=== PATIENT | female | born 1995 | race Caucasian/White ===

== ENCOUNTER 2016-11-07 19:35 | Emergency (ER) | payer MEDICAID ==
[2016-11-07] MEDS ORDERED: MUPIROCIN 2% OINTMENT 22 GM TP ONE (23:19)
[2016-11-07] MEDS ORDERED: SULFAMETHOXAZOLE/TRIMETHOPRIM 800-160 MG TABLET PO ONE (23:19)
[2016-11-07] MEDS ORDERED: HYDROCODONE/ACETAMINOPHEN 5-325 MG TABLET PO ONE (23:19)
--- NOTE | 2016-11-07 23:24 | ER Document Report ---
ED Skin Rash/Insect Bite/Abscs - General Chief Complaint: Insect Bite Stated Complaint: LEFT ARM LEAKING FLUID Mode of Arrival: Ambulatory Information source: Patient Notes: Patient is a 21-year-old female who presents to the ER today for left arm abscess that she says she woke up with 2 days ago that has worsened in pain , redness and today she woke up with a white pus pocket over the top which burst and it has been leaking pus ever since. She denies any fevers or chills that she knows of, history of MRSA. She denies any insect bite that she saw or IV drug use. TRAVEL OUTSIDE OF THE [place] IN LAST 30 DAYS: No - Related Data Allergies/Adverse Reactions: No Known Allergies Allergy (Verified 03/29/16 18:37) Past Medical History - General Information source: Patient - Social History Smoking Status: Unknown if Ever Smoked Family History: Reviewed & Not Pertinent Endocrine Medical History: Reports: Hx Hypothyroidism Psychiatric Medical History: Reports: Hx Depression Past Surgical History: Reports: Hx Section - Immunizations Hx Diphtheria, Pertussis, Tetanus Vaccination: Yes Review of Systems - Review of Systems Constitutional: No symptoms reported EENT: No symptoms reported Cardiovascular: No symptoms reported Respiratory: No symptoms reported Gastrointestinal: No symptoms reported Genitourinary: No symptoms reported Female Genitourinary: No symptoms reported Musculoskeletal: No symptoms reported Skin: See HPI Hematologic/Lymphatic: No symptoms reported Neurological/Psychological: No symptoms reported Physical Exam - Vital signs Vitals: Temp Pulse Resp BP Pulse Ox 98.3 F 102 H 16 111/90 H 100 11/07/16 20:39 11/07/16 20:39 11/07/16 20:39 11/07/16 20:39 11/07/16 20:39 - Notes Notes: PHYSICAL EXAMINATION: GENERAL: Anxious, but in no acute distress. HEAD: Atraumatic, normocephalic. EYES: Pupils equal round and reactive to light, extraocular movements intact, sclera anicteric, conjunctiva are normal. NECK: Normal range of motion, supple without lymphadenopathy LUNGS: CTAB and equal. No wheezes rales or rhonchi. HEART: Regular rate and rhythm without murmurs EXTREMITIES: Normal range of motion, no pitting edema. No cyanosis. NEUROLOGICAL: Cranial nerves grossly intact. Normal sensory/motor exams. PSYCH: Normal mood, normal affect. SKIN: Warm, Dry, normal turgor, 4 cm of erythema to left proximal, lateral forearm, tender to palpation, 1 cm in diameter hole in the center leaking brown purulent discharge, tender to palpation, slightly indurated under, no fluctuance , no bleeding Course - Re-evaluation Re-evalutation: 11/07/16 23:22 Abscess is already open and draining very well. Patient will be placed on Bactrim and given something for pain. Culture was obtained and pending. - Vital Signs Vital signs: Temp Pulse Resp BP Pulse Ox 98.3 F 102 H 16 111/90 H 100 11/07/16 20:39 11/07/16 20:39 11/07/16 20:39 11/07/16 20:39 11/07/16 20:39 Discharge - Discharge Clinical Impression: Abscess of left arm Condition: Stable Disposition: HOME, SELF-CARE Instructions: Abscess ([facility]), Oral Narcotic Medication ([facility]), Trimethoprim- Sulfa ([facility]) Additional Instructions: Return immediately for any new or worsening symptoms. Follow up with primary care provider, call tomorrow to make followup appointment. Prescriptions: Hydrocodone/Acetaminophen [[place] 5-325 mg Tablet] 1 tab PO Q4 PRN #15 tablet PRN Reason: Sulfamethoxazole/Trimethoprim [Bactrim Ds Tablet] 1 each PO BID #20 tablet
[2016-11-08 01:02] VITALS: BP 109/89
== END 2016-11-08 00:08 | disposition home or self-care (01) ==
LOC: ER 19:35
DX: S40.862A Insect bite (nonvenomous) of left upper arm, initial encounter (principal); L02.414 Cutaneous abscess of left upper limb; W57.XXXA Bitten or stung by nonvenomous insect and other nonvenomous arthropods, initial encounter
CPT/HCPCS: 99281; 87070; 87205; 87075; 87077; J3490 ×2

== ENCOUNTER 2017-03-31 11:44 | Emergency (ER) | payer MEDICAID ==
--- NOTE | 2017-03-31 12:07 | ER Document Report ---
ED Medical Screen (RME) - General Chief Complaint: Abdominal Pain Stated Complaint: ABDOMINAL CRAMPING Time Seen by Provider: 03/31/17 12:01 Notes: 21-year-old female patient with LMP 02/21/2017, positive home test, 3 days of severe pelvic cramping. No bleeding. Patient is blood type a positive She is A0. I have greeted and performed a rapid initial assessment of this patient. A comprehensive ED assessment and evaluation of the patient, analysis of test results and completion of the medical decision making process will be conducted by additional ED providers. TRAVEL OUTSIDE OF THE [place] IN LAST 30 DAYS: No - Related Data Allergies/Adverse Reactions: No Known Allergies Allergy (Verified 03/31/17 12:01) Past Medical History - Social History Chew tobacco use (# tins/day): No Frequency of alcohol use: None Drug Abuse: None Endocrine Medical History: Reports: Hx Hypothyroidism Renal/ Medical History: Denies: Hx Peritoneal Dialysis Psychiatric Medical History: Reports: Hx Depression Past Surgical History: Reports: Hx Section - Immunizations Hx Diphtheria, Pertussis, Tetanus Vaccination: Yes Physical Exam - Vital signs Vitals: Temp Pulse Resp BP Pulse Ox 98.5 F 106 H 14 119/69 100 03/31/17 11:47 03/31/17 11:47 03/31/17 11:47 03/31/17 11:47 03/31/17 11:47 Course - Vital Signs Vital signs: Temp Pulse Resp BP Pulse Ox 98.5 F 106 H 16 119/69 100 03/31/17 11:47 03/31/17 11:47 03/31/17 12:01 03/31/17 11:47 03/31/17 11:47
[2017-03-31 12:41] LABS: ABSOLUTE BASOPHILS # (AUTO) 0.1 10^3/uL (0.0-0.2); ABSOLUTE LYMPHOCYTES (AUTO) 2.2 10^3/uL (0.5-4.7); ABSOLUTE MONOCYTES (AUTO) 0.5 10^3/uL (0.1-1.4); ABSOLUTE NEUT (AUTO) 6.2 10^3/uL (1.7-8.2); BASOPHILS % (AUTO) 0.6 % (0-2); EOSINOPHILS % (AUTO) 0.2 % (0-6); HEMATOCRIT 39.2 % (36.0-47.0); HEMOGLOBIN 13.4 g/dL (12.0-15.5); LYMPHOCYTES % (AUTO) 24.1 % (13-45); MEAN CORPUSCULAR HEMOGLOBIN 31.2 pg (27.0-33.4); MEAN CORPUSCULAR HGB CONC 34.1 g/dL (32.0-36.0); MEAN CORPUSCULAR VOLUME 91 fl (80-97); MONOCYTES % (AUTO) 6.1 % (3-13); RED BLOOD COUNT 4.29 10^6/uL (3.72-5.28); RED CELL DISTRIBUTION WIDTH 13.6 % (11.5-14.0)
--- NOTE | 2017-03-31 12:57 | RADIOLOGY REPORT (SQ) ---
EXAM DESCRIPTION: U/S OB TRANSVAGINAL W/O DOP COMPLETED DATE/TIME: 03/31/2017 12:42 pm REASON FOR STUDY: 5.5 wks, severe cramps, + home HCG COMPARISON: None. TECHNIQUE: Transvaginal static and realtime grayscale images acquired of the pelvis. Additional melissa cted spectral and color Doppler images recorded. All images stored on PACs. bHCG: Pending. LIMITATIONS: None. FINDINGS: FETUS: Living intrauterine . EGA: 6 week. ELI: 11/24/2017. FHR: 118 beats per minute. SUBCHORIONIC BLEED: No. SIZE OF BLEED: Not applicable. UTERUS: No masses. No anomalies. CERVICAL LENGTH: 3.1 cm. Closed. RIGHT ADNEXA: Normal ovary with normal vascular flow. No adnexal free fluid. No adnexal masses. LEFT ADNEXA: Ovary not identified. No adnexal free fluid. No adnexal masses. FREE FLUID: None. OTHER: No other significant finding. IMPRESSION: LIVING INTRAUTERINE . EGA 6 WEEK. Trimester of : First - 0 to 13 weeks. TECHNICAL DOCUMENTATION: JOB ID: [id number] [employer]- All Rights Reserved
[2017-03-31] MEDS ORDERED: METOCLOPRAMIDE HCL 10 MG TABLET PO ONE (14:30)
--- NOTE | 2017-03-31 15:17 | ER Document Report ---
ED General - General Chief Complaint: Abdominal Pain Stated Complaint: ABDOMINAL CRAMPING Time Seen by Provider: 03/31/17 12:01 TRAVEL OUTSIDE OF THE [place] IN LAST 30 DAYS: No - HPI Notes: Patient is coming in for abdominal pain nausea vomiting. Patient is a . Patient states previous was complicated with labor at 7 months at a time patient was smoking. Patient states she does continue to smoke however does complain on quitting. Patient also complains of insomnia states that since she is when she has been she has had difficulty sleeping. Patient denies any other past medical history. - Related Data Allergies/Adverse Reactions: No Known Allergies Allergy (Verified 03/31/17 12:01) Past Medical History - Social History Smoking Status: Current Every Day Smoker Chew tobacco use (# tins/day): No Frequency of alcohol use: None Drug Abuse: None Family History: Reviewed & Not Pertinent Patient has suicidal ideation: No Patient has homicidal ideation: No Endocrine Medical History: Reports: Hx Hypothyroidism Renal/ Medical History: Denies: Hx Peritoneal Dialysis Psychiatric Medical History: Reports: Hx Depression Past Surgical History: Reports: Hx Section - Immunizations Hx Diphtheria, Pertussis, Tetanus Vaccination: Yes Review of Systems - Review of Systems Constitutional: No symptoms reported EENT: No symptoms reported Cardiovascular: No symptoms reported Respiratory: No symptoms reported Gastrointestinal: Abdominal pain Genitourinary: No symptoms reported Female Genitourinary: No symptoms reported Musculoskeletal: No symptoms reported Skin: No symptoms reported Hematologic/Lymphatic: No symptoms reported Neurological/Psychological: No symptoms reported -: Yes All other systems reviewed and negative Physical Exam - Vital signs Vitals: Temp Pulse Resp BP Pulse Ox 98.5 F 106 H 14 119/69 100 03/31/17 11:47 03/31/17 11:47 03/31/17 11:47 03/31/17 11:47 03/31/17 11:47 Interpretation: Normal - General General appearance: Appears well, Alert - HEENT Head: Normocephalic, Atraumatic Eyes: Normal Pupils: PERRL Neck: Other - Diffuse cervical lymphadenopathy in anterior chains underneath the angle of the mandible of the wall of the right side. - Respiratory Respiratory status: No respiratory distress Chest status: Nontender Breath sounds: Normal Chest palpation: Normal - Cardiovascular Rhythm: Irregularly irregular, Tachycardia Heart sounds: Normal auscultation Murmur: No - Abdominal Inspection: Normal Distension: No distension Bowel sounds: Normal Tenderness: Nontender Organomegaly: No organomegaly - Back Back: Normal, Nontender - Extremities General upper extremity: Normal inspection, Nontender, Edema - Right upper extremity edema, Normal color, Normal ROM, Normal temperature General lower extremity: Normal inspection, Nontender, Normal color, Normal ROM , Normal temperature, Normal weight bearing. No: Jonathan's sign - Neurological Neuro grossly intact: Yes Cognition: Normal Orientation: AAOx4 Felicit[place] Coma Scale Eye Opening: Spontaneous [place] Coma Scale Verbal: Oriented [place] Coma Scale Motor: Obeys Commands Felicit[place] Coma Scale Total: 15 Speech: Normal Motor strength normal: LUE, RUE, LLE, RLE Sensory: Normal - Psychological Associated symptoms: Normal affect, Normal mood - Skin Skin Temperature: Warm Skin Moisture: Dry Skin Color: Normal Course - Re-evaluation Re-evalutation: Educated patient about uiga-vwp-rnilgmn medications for her nausea vomiting. Patient's ultrasound does show an IUP approximately 6 weeks. No signs of ectopic . More likely patient experiencing round ligament pain. Patient encouraged to drink plenty of water take Tylenol for pain. Patient was encouraged follow-up with [facility] take vitamins. Patient was given a prescription for Unisom and Reglan. Patient was also given instructions on the over the counter medications for nausea. Patient discharged home 03/31/17 15:46 - Vital Signs Vital signs: Temp Pulse Resp BP Pulse Ox 98.5 F 106 H 16 119/69 100 03/31/17 11:47 03/31/17 11:47 03/31/17 12:01 03/31/17 11:47 03/31/17 11:47 - Laboratory Result Diagrams: 03/31/17 12:14 Laboratory results interpreted by me: 03/31/17 12:14 Beta HCG, Quant 19602.00 H Discharge - Discharge Clinical Impression: Abdominal pain affecting , Nausea/vomiting in Condition: Good Disposition: HOME, SELF-CARE Instructions: Pelvic Pain in ([facility]), ([facility]) Additional Instructions: Your ultrasound today shows a approximately 6 weeks. It is important that she continue to drink plenty water to stay hydrated. This will also aid in your stomach pain. At this time you please make sure to take the vitamins as prescribed. May only take Tylenol for your pain control. Return to the ER if symptoms worsen. 218 your insomnia and nausea you may take Unisom. Also for nausea you may take the Reglan prescribed. You do not need to get both prescriptions filled. Please make sure that you are taking the vitamins as prescribed. You have been seen for vomiting during .~ You should continue to drink plenty of water and consider taking a solution such as Pedialyte if your having difficulty eating food.~ Please return if you become unable to drink any fluids for more than 12 hours, urinate less than twice a day, pass out, or have any other symptoms that are concerning to you. ~ For nausea and vomiting during I recomment: Start with 10-12.5 mg of pyridoxine (vitamin B6) three times a day for 2 days. If not fully effective, Increase to 12.5 mg of pyridoxine four times a day for 2 days. If not fully effective, Increase to 25 mg of pyridoxine three times a day for 2 days. If not fully effective, Continue 25 mg pyridoxine 3 times a day, and add 12.5 mg of doxylamine before bedtime each day for 2 days. If not fully effective, Continue 25 mg pyridoxine 3 times a day, and take 12.5 mg of doxylamine twice a day. If not fully effective, Continue 25 mg pyridoxine 3 times a day, and take 12.5 mg of doxylamine three times a day. If not fully effective, Continue 25 mg pyridoxine 3 times a day, and 12.5 mg of doxylamine 3 times a day , while adding Emetrol, one to two tablespoons (15-30 cc) taken once or twice a day as needed. (Emetrol is an kwur-wdz-josgoiy mixture of sugar syrups and phosphoric acid [phosphorylated carbohydrate solution]) that acts by soothing the actual wall of the gastrointestinal tract). If not fully effective, Consult with your doctor. Prescriptions: Doxylamine Succinate [Unisom] 12.5 - 25 mg PO QHS #30 tablet Metoclopramide HCl [Reglan] 5 mg PO Q6 #20 tablet Vit #76/Iron,Carb/FA [Prenatabs Rx Tablet] 1 each PO DAILY #30 tablet Forms: Return to Work
[2017-03-31 15:34] VITALS: BP 126/96
== END 2017-03-31 15:20 | disposition home or self-care (01) ==
LOC: ER 11:44
DX: O26.891 Other specified pregnancy related conditions, first trimester (principal); R10.9 Unspecified abdominal pain; R00.0 Tachycardia, unspecified; R59.0 Localized enlarged lymph nodes; O21.9 Vomiting of pregnancy, unspecified; O99.351 Diseases of the nervous system complicating pregnancy, first trimester; G47.00 Insomnia, unspecified; O99.331 Smoking (tobacco) complicating pregnancy, first trimester; O99.411 Diseases of the circulatory system complicating pregnancy, first trimester; I49.9 Cardiac arrhythmia, unspecified; O09.211 Supervision of pregnancy with history of pre-term labor, first trimester; Z3A.01 Less than 8 weeks gestation of pregnancy
CPT/HCPCS: 99284; 36415; 84702; 85025; 76817; J3490

== ENCOUNTER 2017-10-23 11:27 | Outpatient (CLI) | payer MEDICAID ==
--- NOTE | 2017-10-23 12:21 | Non Stress Test Report ---
Non Stress Test Datetime Report Generated by CPN: 10/23/2017 12:21 DEMOGRAPHIC EGA NST: 36.2 INDICATION Indication for Study: Ordered by Provider MONITORING Monitor Explained: Monitor Explained; Test Explained; Patient Verbalized Understanding Time on Monitor: 10/23/2017 11:45 Time off Monitor: 10/23/2017 12:17 NST Duration: 32 NST INTERVENTIONS NST Interventions: PO Hydration; Reposition Patient Physician Notified NST: A Emmel CNM BABY A: [id number] BABY A Movement : Present Contraction Frequency : rare FHR Baseline : 125 Accelerations : 15X15 Decelerations : None Variability : Moderate 6-25bpm NST Review: Meets Criteria for Reactive NST NST Review and Verified By : Anny Richards RNC NST Results: Reactive NST REPORT Report Trigger: Send Report
== END 2017-10-23 12:20 | disposition home or self-care (01) ==
LOC: LC 11:27
PROVIDERS: ATTEND Obstetrics & Gynecology Gynecology
PROC: 4A1HXCZ Monitoring of Products of Conception, Cardiac Rate, External Approach (ICD-10-PCS; principal; 2017-10-23)
DX: Z34.93 Encounter for supervision of normal pregnancy, unspecified, third trimester (principal); Z36.89 Encounter for other specified antenatal screening; Z3A.36 36 weeks gestation of pregnancy
CPT/HCPCS: 59025

== ENCOUNTER 2017-11-11 10:41 | Outpatient (CLI) | payer MEDICAID ==
[2017-11-11 11:50] LABS: APPEARANCE,URINE CLOUDY; BILIRUBIN,URINE NEGATIVE (NEGATIVE); COLOR,URINE YELLOW; GLUCOSE, URINE NEGATIVE (NEGATIVE); KETONES,URINE NEGATIVE (NEGATIVE); LEUKOCYTE ESTERASE,URINE TRACE (NEGATIVE); NITRITE,URINE NEGATIVE (NEGATIVE); PROTEIN,URINE NEGATIVE (NEGATIVE); URINE SPECIFIC GRAVITY 1.014; UROBILINOGEN,URINE NEGATIVE mg/dL (<2.0)
[2017-11-11 12:19] LABS: URINE AMPHETAMINES SCREEN NEGATIVE; URINE BARBITURATES SCREEN NEGATIVE; URINE BENZODIAZEPINES SCREEN NEGATIVE; URINE COCAINE SCREEN NEGATIVE; URINE MARIJUANA (THC) SCREEN NEGATIVE; URINE METHADONE SCREEN NEGATIVE; URINE PHENCYCLIDINE SCREEN NEGATIVE
--- NOTE | 2017-11-11 12:48 | L&D Progress Notes ---
PROGRESS NOTES Datetime Report Generated by CPN: 11/11/2017 12:48 PROGRESS NOTE Comment: 22 yo presents with complaints of uterine contractions repeat c/s scheduled for next week EDC smoker poor dentition d/c home with instructions keep regularly scheduled appt VAGINAL EXAM Dilatation: 1 Effacement: 25 Station: -3 FETUS A Monitoring: External US SIGNATURE SIGNATURE: [id number];[id number] SIGNATURE: [id number] Assignment: Alexei Garza MD Signature: with User ID: [email or web address] : with User ID: [email or web address]
== END 2017-11-11 13:00 | disposition home or self-care (01) ==
LOC: LC 10:41
PROVIDERS: ATTEND Obstetrics & Gynecology Gynecology
PROC: 4A1HXCZ Monitoring of Products of Conception, Cardiac Rate, External Approach (ICD-10-PCS; principal; 2017-11-11)
DX: O47.1 False labor at or after 37 completed weeks of gestation (principal); O99.333 Smoking (tobacco) complicating pregnancy, third trimester; O34.219 Maternal care for unspecified type scar from previous cesarean delivery; Z3A.39 39 weeks gestation of pregnancy
CPT/HCPCS: 80307; 81005

== ENCOUNTER 2017-11-18 05:17 | Inpatient (IN) | payer MEDICAID ==
[2017-11-15 12:03] LABS: APPEARANCE,URINE CLOUDY; BILIRUBIN,URINE NEGATIVE (NEGATIVE); COLOR,URINE YELLOW; GLUCOSE, URINE NEGATIVE (NEGATIVE); KETONES,URINE NEGATIVE (NEGATIVE); LEUKOCYTE ESTERASE,URINE MODERATE (NEGATIVE); NITRITE,URINE NEGATIVE (NEGATIVE); PROTEIN,URINE NEGATIVE (NEGATIVE); URINE SPECIFIC GRAVITY 1.012
[2017-11-15 12:05] LABS: ABSOLUTE BASOPHILS # (AUTO) 0.1 10^3/uL (0.0-0.2); ABSOLUTE EOSINOPHILS # (AUTO) 0.1 10^3/uL (0.0-0.6); ABSOLUTE LYMPHOCYTES (AUTO) 3.1 10^3/uL (0.5-4.7); ABSOLUTE MONOCYTES (AUTO) 0.9 10^3/uL (0.1-1.4); ABSOLUTE NEUT (AUTO) 10.3 10^3/uL (1.7-8.2); BASOPHILS % (AUTO) 0.8 % (0-2); EOSINOPHILS % (AUTO) 0.5 % (0-6); HEMATOCRIT 38.2 % (36.0-47.0); HEMOGLOBIN 12.9 g/dL (12.0-15.5); LYMPHOCYTES % (AUTO) 21.6 % (13-45); MEAN CORPUSCULAR HGB CONC 33.8 g/dL (32.0-36.0); MEAN CORPUSCULAR VOLUME 89 fl (80-97); MONOCYTES % (AUTO) 5.9 % (3-13); PLATELET COUNT 322 10^3/uL (150-450); RED CELL DISTRIBUTION WIDTH 13.2 % (11.5-14.0); SEGMENTED NEUTROPHILS % (AUTO) 71.2 % (42-78); TOTAL CELLS COUNTED % (AUTO) 100 %; WHITE BLOOD COUNT 14.5 10^3/uL (4.0-10.5)
[2017-11-15 12:17] LABS: URINE AMPHETAMINES SCREEN NEGATIVE; URINE BARBITURATES SCREEN NEGATIVE; URINE BENZODIAZEPINES SCREEN NEGATIVE; URINE COCAINE SCREEN NEGATIVE; URINE MARIJUANA (THC) SCREEN NEGATIVE; URINE METHADONE SCREEN NEGATIVE; URINE PHENCYCLIDINE SCREEN NEGATIVE
[2017-11-18] MEDS ORDERED: CEFAZOLIN 1 GM/D5W RTU 1 GM/50 ML RTUPB IV ONE (06:03)
[2017-11-18] MEDS ORDERED: OXYTOCIN 10 UNIT/ML VIAL ONE (07:36)
[2017-11-18] MEDS ORDERED: MIDAZOLAM 2 MG/2 ML INJ ONE (07:37)
[2017-11-18] MEDS ORDERED: FENTANYL CITRATE INJ/PF 100 MCG/2 ML AMPUL ONE (07:37)
[2017-11-18] MEDS ORDERED: PROPOFOL INJ 200 MG/20 ML VIAL IV ONE (07:37)
[2017-11-18] MEDS ORDERED: EPHEDRINE SULFATE INJ 50 MG/1 ML AMPULE ONE (07:37)
[2017-11-18] MEDS ORDERED: KETAMINE HCL INJ 500 MG/10 ML VIAL ONE (08:11)
[2017-11-18] MEDS ORDERED: RINGERS SOLUTION,LACTATED 1,000 ML IV SCH (08:30)
[2017-11-18] MEDS ORDERED: PROMETHAZINE HCL INJ 25 MG/1 ML VIAL IM PRN (08:30)
[2017-11-18] MEDS ORDERED: DIPH/PERTUSS(ACELL)/TETANUS VAC/PF 0.5 ML SYR (>=10YO) IM PRN (08:30)
[2017-11-18] MEDS ORDERED: MEASLES,MUMPS&RUBELLA VACC/PF 0.5 ML VIAL SUBCUT PRN (08:30)
[2017-11-18] MEDS ORDERED: ACETAMINOPHEN 325 MG TABLET PO PRN (08:30)
[2017-11-18] MEDS ORDERED: RINGERS SOLUTION,LACTATED 200 ML IV PRN (08:35)
[2017-11-18] MEDS ORDERED: DIPHENHYDRAMINE HCL 50 MG/ML VIAL IV PRN (08:36)
[2017-11-18] MEDS ORDERED: PROMETHAZINE HCL INJ 25 MG/1 ML VIAL IV PRN (08:36)
[2017-11-18] MEDS ORDERED: ONDANSETRON HCL INJ/PF 4 MG/2 ML SDV IV PRN (08:36)
--- NOTE | 2017-11-18 09:04 | OPERATIVE REPORT E ---
Operative Report NAME: HEATHER KAISER : 1995 AGE: 22Y DATE OF SURGERY: 11/18/2017 ROOM: 227 PREOPERATIVE DIAGNOSES: 1. Intrauterine at 39 weeks and 1 day. 2. Previous . POSTOPERATIVE DIAGNOSES: 1. Intrauterine at 39 weeks and 1 day. 2. Previous . OPERATION: Repeat low transverse hysterotomy section. SURGEON: JAYRO BATRES M.D. ANESTHESIA: Dr. Quarles with spinal. FINDINGS: A male infant in cephalic presentation with Apgars of 8 and 9. Weight 5 pounds 15 ounces. COMPLICATIONS: None. ESTIMATED BLOOD LOSS: 600 mL. SPECIMENS REMOVED: None. PROCEDURE IN DETAIL: Patient was taken to the operating room, prepared and draped in normal sterile fashion in the supine position with a leftward tilt. A transverse skin incision was made with the scalpel and carried through to the underlying layer of fascia with the same scalpel. The fascia was excised in the midline and extended laterally with Jaylen. The fascia was then dissected from the rectus muscle sharply with Jaylen and the rectus muscle was divided and the peritoneal cavity was entered bluntly with good visualization of the bladder and the uterus. The bladder blade was inserted and the hysterotomy was nicked in the center and extended with surgeon finger fracture. The infant was then delivered atraumatically. Then nose and mouth were suctioned with a suction bulb. The cord was clamped and cut, and the infant was handed off to waiting gunstock spray unit adjuster. The cord blood was collected and placenta was removed manually. The uterus was exteriorized and cleared of clots and debris. The hysterotomy was closed with 0 Monocryl in a running locked fashion. A second layer was used in an imbricating fashion to ensure hemostasis. The uterus was returned to the abdomen, and the peritoneal cavity was cleared of clots and debris. The rectus muscle and peritoneum were reapproximated with a mattress suture of 2-0 chromic. The fascia was closed with 0 Vicryl. The subcutaneous layer was closed with plain catgut and the skin was closed with 4-0 Vicryl. Patient tolerated procedure well. Sponge, lap and needle counts were correct x2. Patient was taken to recovery in stable condition. DICTATING PHYSICIAN: JAYRO BATRES M.D. [id number] PHY#: [id number] ID: [id number] [facility]#: [id number] ACCT: [id number] cc:JAYRO BATRES M.D. >
[2017-11-18] MEDS ORDERED: ACETAMINOPHEN 100 ML IV ONE (09:07)
--- NOTE | 2017-11-18 09:18 | Warning Signs in Babies ---
VOD Warning Signs Datetime Report Generated by [facility]: 11/18/2017 09:17 VOD#608 -Warning Signs in Babies: Needs to be viewed. (11/18/2017 08:49:Pricila Brito RN)
[2017-11-18] MEDS: OXYTOCIN/NORMAL SALINE 20 UNIT/1,000 ML RTUINJ INJ PRN ×2 (09:22→09:45)
[2017-11-18] MEDS: PRENATAL VITAMIN W DHA CAPSULE PO SCH (09:35)
[2017-11-18] MEDS: BUPRENORPHINE HCL 2 MG SUBLINGUAL TABLET SL SCH ×2 (09:35→17:31)
[2017-11-18] MEDS: DOCUSATE SODIUM 100 MG CAPSULE PO SCH ×2 (09:35→17:31)
[2017-11-18] MEDS ORDERED: PHENYLEPHRINE HCL INJ/PF 10 MG/1 ML SDV ONE (12:06)
[2017-11-18] MEDS ORDERED: KETOROLAC TROMETHAMINE 60 MG/2 ML SDV ONE (12:06)
[2017-11-18] MEDS: KETOROLAC TROMETHAMINE INJ/PF 30 MG/1 ML SDV IV SCH ×2 (14:00→21:08)
[2017-11-18] MEDS ORDERED: ACETAMINOPHEN 100 ML IV SCH ×2 (14:00→17:00)
[2017-11-19] MEDS ORDERED: LACTATED RINGERS 1000 ML IV PRN (05:00)
[2017-11-19] MEDS ORDERED: LIDOCAINE 0.5% INJ-PF (5 MG/ML) 50 ML SDV SUBCUT PRN (05:00)
[2017-11-19] MEDS: KETOROLAC TROMETHAMINE INJ/PF 30 MG/1 ML SDV IV SCH (05:27)
[2017-11-19 06:39] LABS: HEMATOCRIT 33.9 % (36.0-47.0); HEMOGLOBIN 11.8 g/dL (12.0-15.5); MEAN CORPUSCULAR HEMOGLOBIN 30.7 pg (27.0-33.4); MEAN CORPUSCULAR HGB CONC 34.9 g/dL (32.0-36.0); MEAN CORPUSCULAR VOLUME 88 fl (80-97); PLATELET COUNT 253 10^3/uL (150-450); RED BLOOD COUNT 3.85 10^6/uL (3.72-5.28); RED CELL DISTRIBUTION WIDTH 13.4 % (11.5-14.0); WHITE BLOOD COUNT 14.2 10^3/uL (4.0-10.5)
[2017-11-19] MEDS: PRENATAL VITAMIN W DHA CAPSULE PO SCH (09:21)
[2017-11-19] MEDS: DOCUSATE SODIUM 100 MG CAPSULE PO SCH ×2 (09:21→17:11)
[2017-11-19] MEDS: BUPRENORPHINE HCL 2 MG SUBLINGUAL TABLET SL SCH ×2 (09:22→17:11)
[2017-11-19] MEDS: IBUPROFEN 800 MG TABLET PO SCH ×2 (11:51→17:12)
--- NOTE | 2017-11-19 13:25 | PDOC PROGRESS REPORT ---
Subjective-OB Subjective: Post Delivery Day:1 22 year old G2 now P2 s/p repeat ppd1. Ambulating, passing gas, voiding and without difficulty. Denies any needs at this time Physical Exam (OB) Vital Signs: Temp Pulse Resp BP Pulse Ox 98 F 73 14 116/77 98 11/19/17 07:53 11/19/17 07:53 11/19/17 07:53 11/19/17 07:53 11/19/17 07:53 Intake & Output 11/18/17 11/19/17 11/20/17 06:59 06:59 06:59 Intake Total 1650 Output Total 2825 Balance -1175 Weight 61.235 kg - General General Appearance: Appears well In distress: None - PIH/Pre-Eclampsia Headache: Absent Epigastric Pain: No Visual Changes: No - Dressing Removed: No Incision: Dressing - honeycomb Closure Type: Sutures - Lochia Lochia Amount: Scant < 10 ml Lochia Color: Serosa/Brown - Abdomen Description: Tender, Soft, Flat Hernia Present: No Fundal Description: Firm, Midline Fundal Height: u/u - u/2 - Respiratory Respiratory Status: No respiratory distress - Extremities Upper extremity: Normal inspection Lower extremities: Normal inspection - Neurological Cognition: Normal Orientation: AAOx4 - Psychological Associated symptoms: Normal affect, Normal mood Objective-Diagnostic Laboratory: 11/19/17 06:31 11/18/17 11/19/17 11:37 06:31 WBC 14.2 H RBC 3.85 Hgb 11.8 L Hct 33.9 L MCV 88 MCH 30.7 MCHC 34.9 RDW 13.4 Plt Count 253 Blood Type A POSITIVE Antibody Screen NEGATIVE Assessment and Plan(PN) - Assessment and Plan (1) delivery delivered Is this a current diagnosis for this admission?: Yes Plan: routine pp care (2) History of uterine scar due to previous surgery Is this a current diagnosis for this admission?: Yes Plan: routine pp care - Time Spent with Patient Time with patient: Less than 15 minutes Medications reviewed and adjusted accordingly: Yes - Disposition Anticipated Discharge: Home Within: within 24 hours
[2017-11-20] MEDS: IBUPROFEN 800 MG TABLET PO SCH ×5 (00:10→23:09)
[2017-11-20] MEDS: DOCUSATE SODIUM 100 MG CAPSULE PO SCH ×2 (09:04→17:02)
[2017-11-20] MEDS: PRENATAL VITAMIN W DHA CAPSULE PO SCH (09:04)
[2017-11-20] MEDS: BUPRENORPHINE HCL 2 MG SUBLINGUAL TABLET SL SCH ×2 (09:04→17:02)
--- NOTE | 2017-11-20 10:43 | PDOC PROGRESS REPORT ---
Subjective-OB Subjective: Post Delivery Day: 22 year old. Denies any needs at this time well on subutex bid denies pain at this time ff@u-1 mild lochia d/c tomorrow and consider nesting- discussed with pt. Physical Exam (OB) Vital Signs: Temp Pulse Resp BP Pulse Ox 98.3 F 77 15 107/72 99 11/20/17 08:05 11/20/17 08:05 11/20/17 08:05 11/20/17 08:05 11/20/17 08:05 Intake & Output 11/19/17 11/20/17 11/21/17 06:59 06:59 06:59 Intake Total 1650 240 Output Total 2825 Balance -1175 240 - PIH/Pre-Eclampsia Clonus: Negative Headache: Absent Epigastric Pain: No Visual Changes: No - Dressing Removed: No Incision: Dressing Closure Type: Sutures - Lochia Lochia Amount: Small 10-25 ml Lochia Color: Rubra/Red - Abdomen Description: Soft, Flat Hernia Present: No Fundal Description: Firm Fundal Height: u/u - u/2 Objective-Diagnostic Laboratory: 11/19/17 06:31 Assessment and Plan(PN) - Time Spent with Patient Medications reviewed and adjusted accordingly: Yes - Disposition Anticipated Discharge: Home
[2017-11-20] MEDS: SIMETHICONE 80 MG TAB.CHEW PO PRN ×2 (16:56→23:10)
[2017-11-21] MEDS: IBUPROFEN 800 MG TABLET PO SCH ×3 (05:30→17:52)
[2017-11-21] MEDS ORDERED: INFLUENZA ADLT QUAD (36MOS+) 2017-18 VAC 0.5 ML SYR IM PRN (09:02)
[2017-11-21] MEDS: PRENATAL VITAMIN W DHA CAPSULE PO SCH (10:56)
[2017-11-21] MEDS: DOCUSATE SODIUM 100 MG CAPSULE PO SCH ×2 (10:56→17:52)
[2017-11-21] MEDS: BUPRENORPHINE HCL 2 MG SUBLINGUAL TABLET SL SCH ×2 (10:56→17:53)
--- NOTE | 2017-11-21 12:20 | PDOC DISCHARGE SUMMARY ---
Final Diagnosis Discharge Date: 11/21/17 - Final Diagnosis (1) delivery delivered Is this a current diagnosis for this admission?: Yes (2) History of uterine scar due to previous surgery Is this a current diagnosis for this admission?: Yes (3) Opiate dependence Is this a current diagnosis for this admission?: Yes Discharge Data - Discharge Medication Prescriptions: Docusate Sodium [Colace 100 mg Capsule] 100 mg PO BID #30 capsule Ibuprofen [Motrin 800 mg Tablet] 800 mg PO Q6 #60 tablet Home Medications: Buprenorphine HCl [Subutex 8 mg Sublingual Tablet] 4 mg PO BID 10/23/17 95/Iron Fum/Folic/Dha [ + Dha Combo Pack] 1 tab PO DAILY Docusate Sodium [Colace 100 mg Capsule] 100 mg PO BID #30 capsule 11/21/17 Ibuprofen [Motrin 800 mg Tablet] 800 mg PO Q6 #60 tablet 11/21/17 Gestational Age: 39.1 Reason(s) for Admission: Ceasarean Section-Repeat Procedures: NST Intrapartum Procedure(s): : Low Cervical, Transverse - Data Baby 1 Male at 1 minute: 8 at 5 minutes: 9 Weight: 3540 kg Home with Mother: Yes Complications: No - Diagnosis Test Laboratory: Temp Pulse Resp BP Pulse Ox 98.6 F 76 16 93/72 L 99 11/21/17 08:22 11/21/17 08:22 11/21/17 08:22 11/21/17 08:22 11/21/17 08:22 11/15/17 11/15/17 11/19/17 11:15 11:25 06:31 RBC 4.30 3.85 Hgb 12.9 11.8 L Hct 38.2 33.9 L Urine Opiates Screen NEGATIVE - Discharge information/Instructions Discharge Activity: Activity As Tolerated, No Lifting Over 10 Pounds, Pelvic Rest, No tub bath Discharge Diet: Regular Disposition: HOME, SELF-CARE Follow [facility] with: [facility] in: 1, Weeks
[2017-11-21 15:25] VITALS: BP 118/77
== END 2017-11-21 17:30 | disposition home or self-care (01) | DRG 765 ==
LOC: 2S 05:17
PROVIDERS: ADMIT Obstetrics & Gynecology; ATTEND Obstetrics & Gynecology
PROC: 4A1HXCZ Monitoring of Products of Conception, Cardiac Rate, External Approach (ICD-10-PCS; 2017-11-18)
PROC: 10D00Z1 Extraction of Products of Conception, Low, Open Approach (ICD-10-PCS; principal; 2017-11-18 07:45)
PROC: 3E0234Z Introduction of Serum, Toxoid and Vaccine into Muscle, Percutaneous Approach (ICD-10-PCS; 2017-11-21)
PROC: 3E0234Z Introduction of Serum, Toxoid and Vaccine into Muscle, Percutaneous Approach (ICD-10-PCS; 2017-11-21)
DX: O34.219 Maternal care for unspecified type scar from previous cesarean delivery (principal); O99.324 Drug use complicating childbirth; F11.20 Opioid dependence, uncomplicated; O99.284 Endocrine, nutritional and metabolic diseases complicating childbirth; E03.9 Hypothyroidism, unspecified; O99.344 Other mental disorders complicating childbirth; F41.9 Anxiety disorder, unspecified; O99.334 Smoking (tobacco) complicating childbirth; Z37.0 Single live birth; Z30.2 Encounter for sterilization; F17.210 Nicotine dependence, cigarettes, uncomplicated; Z3A.39 39 weeks gestation of pregnancy; Z23 Encounter for immunization
CPT/HCPCS: 1961; 36415; 59025; 80307; 81001; 85025; 85027; 86850; 86900; 86901; 90686; 90715; 94799; J0131; J0571; J0690; J1885; J2250; J2370; J2590; J2704; J3010; J3490

== ENCOUNTER 2018-03-07 17:39 | Inpatient (IN) | payer MEDICAID ==
[2018-03-07] MEDS ORDERED: ACETAMINOPHEN 325 MG TABLET PO ONE (18:08)
[2018-03-07] MEDS ORDERED: CEFTRIAXONE 1 GM/D5W RTU 50 ML IV ONE (18:08)
[2018-03-07] MEDS ORDERED: NORMAL SALINE 1000 ML 2,000 ML IV ONE (18:09)
--- NOTE | 2018-03-07 18:17 | ER Document Report ---
ED Skin Rash/Insect Bite/Abscs - General Chief Complaint: Abscess Stated Complaint: ABSCESS/LEFT ARM Time Seen by Provider: 03/07/18 18:02 Mode of Arrival: Ambulatory Information source: Patient Notes: Patient presents complaining of abscess to left forearm for the past week. Patient states the area has markedly become worse over the past 3 days. Patient does report some nausea. Patient does report a history of IV heroin drug use, but states her last injection was 2 years ago. TRAVEL OUTSIDE OF THE [place] IN LAST 30 DAYS: No - HPI Patient complains to provider of: Tender/swollen area Onset: Last week Onset/Duration: Worse Quality of pain: Sharp Pain Level: 5 Skin Character: Abscess, Swelling, Tenderness, Warm Exacerbated by: Movement Relieved by: Denies Similar symptoms previously: Yes Recently seen / treated by doctor: No - Related Data Allergies/Adverse Reactions: No Known Allergies Allergy (Verified 03/07/18 21:01) Past Medical History - General Information source: Patient - Social History Smoking Status: Current Every Day Smoker Smoking Education Provided: Yes Frequency of alcohol use: None Drug Abuse: Heroin - Last use was 2 years ago Occupation: None Lives with: Family Family History: Reviewed & Not Pertinent Endocrine Medical History: Reports: Hx Hypothyroidism. Denies: Hx Hyperthyroidism Renal/ Medical History: Denies: Hx Peritoneal Dialysis Psychiatric Medical History: Reports: Hx Depression Denies: Hx Bipolar Disorder, Hx Post Traumatic Stress Disorder, Hx Schizophrenia Past Surgical History: Reports: Hx Section - Immunizations Hx Diphtheria, Pertussis, Tetanus Vaccination: Yes Review of Systems - Review of Systems Constitutional: No symptoms reported EENT: No symptoms reported Cardiovascular: No symptoms reported Respiratory: No symptoms reported Gastrointestinal: No symptoms reported Genitourinary: No symptoms reported Female Genitourinary: No symptoms reported Skin: Lumps - Tender abscess to left forearm Hematologic/Lymphatic: No symptoms reported Neurological/Psychological: No symptoms reported Physical Exam - Vital signs Vitals: Temp Pulse Resp BP Pulse Ox 100.7 F H 139 H 18 134/88 H 100 03/07/18 17:48 03/07/18 17:48 03/07/18 17:48 03/07/18 17:48 03/07/18 17:48 - General General appearance: Appears well, Alert In distress: None - HEENT Head: Normocephalic Eyes: Normal Conjunctiva: Normal Nasal: Normal Mouth/Lips: Normal Mucous membranes: Dry Neck: Normal, Supple. No: Lymphadenopathy - Respiratory Respiratory status: No respiratory distress Chest status: Nontender Breath sounds: Normal Chest palpation: Normal - Cardiovascular Rhythm: Tachycardia Heart sounds: S1 appreciated, S2 appreciated Murmur: No - Back Back: Normal, Nontender - Extremities General upper extremity: Tender - large abscess to proximal left forearm General lower extremity: Normal inspection, Normal ROM - Neurological Neuro grossly intact: Yes Cognition: Normal [place] Coma Scale Eye Opening: Spontaneous [place] Coma Scale Verbal: Oriented [place] Coma Scale Motor: Obeys Commands [place] Coma Scale Total: 15 - Psychological Associated symptoms: Normal affect, Normal mood - Skin Skin Temperature: Warm Skin Moisture: Dry Skin Color: Erythema Skin irregularity: Abscess Irregularity with: Swelling, Tenderness, Warmth, Inflammation Course - Re-evaluation Re-evalutation: 03/07/18 18:[address] Torres who agrees to come and evaluate patient 03/07/18 18:25 Dr. Torres to bedside for examination. 03/07/18 19:05 Dr. Torres plans to admit patient, recommends giving her IV vancomycin this time. 03/07/18 21:48 - Vital Signs Vital signs: Temp Pulse Resp BP Pulse Ox 99.5 F 121 H 18 128/77 H 98 03/07/18 21:10 03/07/18 21:10 03/07/18 21:10 03/07/18 20:54 03/07/18 21:10 - Laboratory Result Diagrams: 03/07/18 19:55 03/07/18 19:55 Laboratory results interpreted by me: Labs- Entire Visit 03/07/18 03/07/18 03/07/18 19:55 19:55 19:55 WBC 17.8 H RBC 3.60 L Hgb 10.4 L Hct 30.3 L MCV 84 MCH 28.9 MCHC 34.3 RDW 13.9 Plt Count 348 Seg Neutrophils % 79.2 H Lymphocytes % 12.5 L Monocytes % 8.0 Eosinophils % 0.0 Basophils % 0.3 Absolute Neutrophils 14.1 H Absolute Lymphocytes 2.2 Absolute Monocytes 1.4 Absolute Eosinophils 0.0 Absolute Basophils 0.1 PT 12.8 INR 0.92 Sodium 137.6 Potassium 3.5 L Chloride 102 Carbon Dioxide 24 Anion Gap 12 BUN 4 L Creatinine 0.44 L Est GFR ( Amer) > 60 Est GFR (Non-Af Amer) > 60 Glucose 135 H Lactic Acid Calcium 9.2 Total Bilirubin 0.2 Direct Bilirubin 0.2 Neonat Total Bilirubin Not Reportable Neonat Direct Bilirubin Not Reportable Neonat Indirect Bili Not Reportable AST 24 ALT 37 Alkaline Phosphatase 92 Total Protein 7.5 Albumin 3.9 Serum HCG, Qual 03/07/18 03/07/18 19:55 19:55 WBC RBC Hgb Hct MCV MCH MCHC RDW Plt Count Seg Neutrophils % Lymphocytes % Monocytes % Eosinophils % Basophils % Absolute Neutrophils Absolute Lymphocytes Absolute Monocytes Absolute Eosinophils Absolute Basophils PT INR Sodium Potassium Chloride Carbon Dioxide Anion Gap BUN Creatinine Est GFR ( Amer) Est GFR (Non-Af Amer) Glucose Lactic Acid 1.1 Calcium Total Bilirubin Direct Bilirubin Neonat Total Bilirubin Neonat Direct Bilirubin Neonat Indirect Bili AST ALT Alkaline Phosphatase Total Protein Albumin Serum HCG, Qual NEGATIVE - Diagnostic Test Radiology reviewed: Reports reviewed Discharge - Discharge Clinical Impression: Abscess of forearm, left, Tachycardia Fever Qualifiers: Fever type: unspecified Qualified Code(s): R50.9 - Fever, unspecified Condition: Stable Disposition: ADMITTED OBSERVATION Admitting Provider: Surgicalist Unit Admitted: Medical Floor
[2018-03-07] MEDS ORDERED: LIDOCAINE 1%/EPINEPHRINE INJ 20 ML VIAL INJ ONE (18:25)
--- NOTE | 2018-03-07 18:42 | RADIOLOGY REPORT (SQ) ---
EXAM DESCRIPTION: CHEST SINGLE VIEW COMPLETED DATE/TIME: 03/07/2018 6:28 pm REASON FOR STUDY: fever COMPARISON: None. EXAM PARAMETERS: NUMBER OF VIEWS: One view. TECHNIQUE: Single frontal radiographic view of the chest acquired. RADIATION DOSE: NA LIMITATIONS: None. FINDINGS: LUNGS AND PLEURA: No opacities, masses or pneumothorax. No pleural effusion. MEDIASTINUM AND HILAR STRUCTURES: No masses. Contour normal. HEART AND VASCULAR STRUCTURES: Heart normal in size. Normal vasculature. BONES: No acute findings. HARDWARE: None in the chest. OTHER: No other significant finding. IMPRESSION: NO ACUTE RADIOGRAPHIC FINDING IN THE CHEST. TECHNICAL DOCUMENTATION: JOB ID: [id number] [employer]- All Rights Reserved Reading location - IP/workstation name: [email or web address]
[2018-03-07] MEDS ORDERED: VANCOMYCIN HCL INJ 1000 MG VIAL IV ONE (19:05)
[2018-03-07] MEDS ORDERED: CEFTRIAXONE INJ 1000 MG VIAL IV ONE (20:00)
--- NOTE | 2018-03-07 20:27 | PDOC H&P ---
History of Present Illness Admission Date/PCP: 03/07/18 19:45 NATANAEL SANFORD MD Patient complains of: Left upper extremity abscess. History of Present Illness: HEATHER KAISER is a 22 year old female with a 5 day history of swelling, pain , erythema of the left upper extremity. There is a large area of fluctuance distal to the antecubital fossa on the left. Patient reports significant amounts of pain and difficulty with movement of the arm. Her pain is a 10 out of 10 and continuous. She has had subjective fevers and chills. Patient has a history of IV drug abuse, but denies injecting within the last 2 years. The patient denies chest pain, shortness of breath, dizziness, orthostasis, fatigue , malaise, abdominal pain. Movement of the arm makes her pain worse, nothing makes it better. Past Medical History Endocrine Medical History: Reports: Hypothyroidism Denies: Hyperthyroidism Psychiatric Medical History: Reports: Depression, Other - History of IV heroin use. Denies: Bipolar Disorder, Post Traumatic Stress Disorder Past Surgical History Past Surgical History: Reports: Section Social History Smoking Status: Unknown if Ever Smoked Frequency of Alcohol Use: None Hx Recreational Drug Use: Yes Drugs: Heroin - Last reported heroin use was 2 years ago. Family History Family History: Reviewed & Not Pertinent Parental Family History Reviewed: Yes Children Family History Reviewed: Yes Sibling(s) Family History Reviewed.: Yes Medication/Allergy Home Medications: Buprenorphine HCl [Subutex 8 mg Sublingual Tablet] 4 mg PO BID 10/23/17 95/Iron Fum/Folic/Dha [ + Dha Combo Pack] 1 tab PO DAILY Docusate Sodium [Colace 100 mg Capsule] 100 mg PO BID #30 capsule 11/21/17 Ibuprofen [Motrin 800 mg Tablet] 800 mg PO Q6 #60 tablet 11/21/17 Allergies/Adverse Reactions: No Known Allergies Allergy (Verified 11/15/17 10:26) Review of Systems Constitutional: PRESENT: chills, fever(s). ABSENT: anorexia, headache(s), night sweats Eyes: ABSENT: visual disturbances Ears: ABSENT: hearing changes Nose, Mouth, and Throat: ABSENT: sore throat Cardiovascular: ABSENT: chest pain, edema, palpitations Respiratory: ABSENT: cough, dyspnea, hemoptysis Gastrointestinal: ABSENT: abdominal pain, constipation, diarrhea, dysphagia, heartburn Genitourinary: ABSENT: dysuria Musculoskeletal: ABSENT: deformity Integumentary: PRESENT: erythema, lesions, other - Fluctuant lesion to the left forearm Neurological: ABSENT: abnormal gait, abnormal movements, abnormal speech, confusion, convulsions, dizziness Psychiatric: ABSENT: anxiety, hallucinations Endocrine: ABSENT: cold intolerance, heat intolerance Hematologic/Lymphatic: ABSENT: easy bleeding, easy bruising Physical Exam Vital Signs: Temp Pulse Resp BP Pulse Ox 100.7 F H 139 H 18 134/88 H 100 03/07/18 17:48 03/07/18 17:48 03/07/18 17:48 03/07/18 17:48 03/07/18 17:48 General appearance: PRESENT: mild distress - Left upper extremity pain Head exam: PRESENT: atraumatic, normocephalic Eye exam: PRESENT: EOMI, PERRLA. ABSENT: conjunctival injection, scleral icterus Mouth exam: PRESENT: moist, neck supple Teeth exam: PRESENT: dental caries, poor dentation Neck exam: ABSENT: lymphadenopathy, meningismus, tenderness, thyromegaly, tracheal deviation Respiratory exam: PRESENT: clear to auscultation sindhu. ABSENT: chest wall tenderness, rales, rhonchi, tachypnea Cardiovascular exam: PRESENT: tachycardia - Mild Pulses: PRESENT: normal radial pulses Vascular exam: PRESENT: normal capillary refill GI/Abdominal exam: PRESENT: soft. ABSENT: distended, guarding, rebound, tenderness Rectal exam: PRESENT: deferred Extremities exam: PRESENT: other - Fluctuant area distal to the left antecubital fossa. Large amount of erythema, induration. Pain with passive extension of the joint. Musculoskeletal exam: PRESENT: tenderness - Left upper extremity Neurological exam: PRESENT: alert, awake, oriented to person, oriented to place , oriented to time, oriented to situation Psychiatric exam: ABSENT: agitated, depressed Skin exam: PRESENT: erythema. ABSENT: cyanosis, jaundice, mottled Results Impressions: Chest X-Ray 03/07/18 18:08 IMPRESSION: NO ACUTE RADIOGRAPHIC FINDING IN THE CHEST. Assessment & Plan - Diagnosis (1) Abscess of forearm, left Is this a current diagnosis for this admission?: Yes - Plan Summary Plan Summary: This is a 22-year-old female with a left upper extremity abscess. The abscess will require incision and drainage tonight. I will admit the patient for IV antibiotics due to the large amount of induration and erythema associated with it. I have discussed this at length with the patient. It is possible that if her infection worsens, she could require further debridement. In a worst case scenario, she could lose her arm. I will start the patient on vancomycin. Further treatments to be determined tomorrow morning. N.p.o. after midnight, in case further debridement is required.
[2018-03-07 20:29] LABS: INTERNATIONAL RATION (INR) 0.92; PROTHROMBIN TIME 12.8 SEC (11.4-15.4)
--- NOTE | 2018-03-07 20:31 | Operative Report ---
Nonrecallable Operative Report DATE OF SURGERY: 03/07/18 PREOPERATIVE DIAGNOSIS: Abscess of the left upper extremity POSTOPERATIVE DIAGNOSIS: Same as above OPERATION: Incision and drainage of a large left upper extremity abscess, extending into the deep musculature. SURGEON: ABIEL MUSE ANESTHESIA: Local TISSUE REMOVED OR ALTERED: Wound culture COMPLICATIONS: None apparent ESTIMATED BLOOD LOSS: Minimal INTRAOPERATIVE FINDINGS: Large amount of purulent material PROCEDURE: Drains/implants: 4 x 4 gauze soaked in Betadine. After informed consent was obtained, the patient was sat in the emergency department in the upright position. Area of the left upper extremity was prepped and draped in a normal sterile fashion. 1% lidocaine with epinephrine was used to anesthetize the area. An elliptical incision was created around the area of maximal fluctuance. A large abscess cavity was identified. A large amount of purulent material was removed from the patient. Wound cultures were taken. The abscess cavity was probed. It was found to track deep into the muscular layers. The abscess cavity was irrigated with copious amounts of saline solution. Once the wound was cleaned, the cavity was packed with a 4 x 4 gauze soaked in Betadine. Dressing was fashioned, and the procedure was concluded. Sponge, instrument, and needle counts were correct 2. Condition: Fair.
[2018-03-07 20:36] LABS: ALANINE AMINOTRANSFERASE 37 U/L (9-52); ALBUMIN 3.9 g/dL (3.5-5.0); ALKALINE PHOSPHATASE 92 U/L (38-126); ANION GAP 12 (5-19); ASPARTATE AMINO TRANSFERASE 24 U/L (14-36); BILIRUBIN,DIRECT 0.2 mg/dL (0.0-0.4); BILIRUBIN,TOTAL 0.2 mg/dL (0.2-1.3); BLOOD UREA NITROGEN 4 mg/dL (7-20); CALCIUM 9.2 mg/dL (8.4-10.2); CARBON DIOXIDE 24 mmol/L (22-30); CHLORIDE 102 mmol/L (98-107); GLUCOSE 135 mg/dL (75-110); POTASSIUM 3.5 mmol/L (3.6-5.0); SODIUM 137.6 mmol/L (137-145); TOTAL PROTEIN 7.5 g/dL (6.3-8.2)
[2018-03-07 20:39] LABS: ABSOLUTE BASOPHILS # (AUTO) 0.1 10^3/uL (0.0-0.2); ABSOLUTE LYMPHOCYTES (AUTO) 2.2 10^3/uL (0.5-4.7); ABSOLUTE MONOCYTES (AUTO) 1.4 10^3/uL (0.1-1.4); ABSOLUTE NEUT (AUTO) 14.1 10^3/uL (1.7-8.2); BASOPHILS % (AUTO) 0.3 % (0-2); HEMATOCRIT 30.3 % (36.0-47.0); HEMOGLOBIN 10.4 g/dL (12.0-15.5); LYMPHOCYTES % (AUTO) 12.5 % (13-45); MEAN CORPUSCULAR HEMOGLOBIN 28.9 pg (27.0-33.4); MEAN CORPUSCULAR HGB CONC 34.3 g/dL (32.0-36.0); MEAN CORPUSCULAR VOLUME 84 fl (80-97); PLATELET COUNT 348 10^3/uL (150-450); RED CELL DISTRIBUTION WIDTH 13.9 % (11.5-14.0); SEGMENTED NEUTROPHILS % (AUTO) 79.2 % (42-78); TOTAL CELLS COUNTED % (AUTO) 100 %; WHITE BLOOD COUNT 17.8 10^3/uL (4.0-10.5)
--- NOTE | 2018-03-07 21:12 | EKG REPORT ---
SEVERITY:- ABNORMAL ECG - SINUS TACHYCARDIA INFERIOR Q WAVES, PROBABLY NORMAL VARIATION NONSPECIFIC T ABNORMALITIES, INFERIOR LEADS : Confirmed by: Alanna Briseno 07-Mar-2018 21:12:03
[2018-03-07] MEDS ORDERED: DEXTROSE 50%-WATER 25 GM/50 ML DISP.SYRIN IV PRN ×2 (21:35)
[2018-03-07] MEDS ORDERED: DEXTROSE 40% GEL 15 GM TUBE PO PRN ×2 (21:35)
[2018-03-07] MEDS ORDERED: GLUCAGON,HUMAN RECOMB 1 MG INJ SUBCUT PRN (21:35)
[2018-03-07] MEDS ORDERED: DEXTROSE 5%-LACTATED RINGERS 1,000 ML IV PRN (21:35)
[2018-03-07] MEDS ORDERED: ONDANSETRON HCL INJ/PF 4 MG/2 ML SDV IV PRN (21:35)
[2018-03-07] MEDS ORDERED: VANCOMYCIN HCL 0 MG in DEXTROSE 5%-WATER 250 ML IV NR (21:35)
[2018-03-07] MEDS: HYDROMORPHONE HCL INJ/PF 2 MG/ML AMPULE IV PRN (22:33)
[2018-03-07] MEDS: VANCOMYCIN HCL 1,250 MG in DEXTROSE 5%-WATER 250 ML IV SCH (22:34)
[2018-03-08] MEDS: HYDROMORPHONE HCL INJ/PF 2 MG/ML AMPULE IV PRN ×6 (02:16→22:17)
[2018-03-08 07:14] LABS: ABSOLUTE BASOPHILS # (AUTO) 0.1 10^3/uL (0.0-0.2); ABSOLUTE EOSINOPHILS # (AUTO) 0.1 10^3/uL (0.0-0.6); ABSOLUTE LYMPHOCYTES (AUTO) 1.8 10^3/uL (0.5-4.7); ABSOLUTE MONOCYTES (AUTO) 1.1 10^3/uL (0.1-1.4); ABSOLUTE NEUT (AUTO) 8.8 10^3/uL (1.7-8.2); BASOPHILS % (AUTO) 0.5 % (0-2); EOSINOPHILS % (AUTO) 0.6 % (0-6); HEMATOCRIT 28.5 % (36.0-47.0); HEMOGLOBIN 9.7 g/dL (12.0-15.5); LYMPHOCYTES % (AUTO) 15.4 % (13-45); MEAN CORPUSCULAR HEMOGLOBIN 29.1 pg (27.0-33.4); MEAN CORPUSCULAR HGB CONC 34.2 g/dL (32.0-36.0); MEAN CORPUSCULAR VOLUME 85 fl (80-97); MONOCYTES % (AUTO) 8.9 % (3-13); PLATELET COUNT 304 10^3/uL (150-450); RED BLOOD COUNT 3.35 10^6/uL (3.72-5.28); RED CELL DISTRIBUTION WIDTH 13.8 % (11.5-14.0); SEGMENTED NEUTROPHILS % (AUTO) 74.6 % (42-78); TOTAL CELLS COUNTED % (AUTO) 100 %; WHITE BLOOD COUNT 11.8 10^3/uL (4.0-10.5)
[2018-03-08 07:29] LABS: ANION GAP 10 (5-19); BLOOD UREA NITROGEN 3 mg/dL (7-20); CALCIUM 8.6 mg/dL (8.4-10.2); CARBON DIOXIDE 26 mmol/L (22-30); CHLORIDE 108 mmol/L (98-107); GLUCOSE 101 mg/dL (75-110); POTASSIUM 3.6 mmol/L (3.6-5.0); SODIUM 143.6 mmol/L (137-145)
[2018-03-08] MEDS ORDERED: SUCCINYLCHOLINE CHLORIDE INJ 200 MG/10 ML VIAL ONE (09:55)
[2018-03-08] MEDS ORDERED: ONDANSETRON HCL INJ/PF 4 MG/2 ML SDV ONE (11:04)
[2018-03-08] MEDS ORDERED: FENTANYL CITRATE INJ/PF 100 MCG/2 ML AMPUL ONE ×2 (11:04→12:23)
[2018-03-08] MEDS ORDERED: PROPOFOL INJ 200 MG/20 ML VIAL IV ONE (11:04)
[2018-03-08] MEDS ORDERED: MIDAZOLAM 2 MG/2 ML INJ ONE (11:04)
[2018-03-08] MEDS: VANCOMYCIN HCL 1,250 MG in DEXTROSE 5%-WATER 250 ML IV SCH ×2 (11:05→22:22)
[2018-03-08 11:06] LABS: APPEARANCE,URINE CLEAR; BILIRUBIN,URINE NEGATIVE (NEGATIVE); COLOR,URINE YELLOW; GLUCOSE, URINE NEGATIVE (NEGATIVE); KETONES,URINE NEGATIVE (NEGATIVE); LEUKOCYTE ESTERASE,URINE NEGATIVE (NEGATIVE); NITRITE,URINE NEGATIVE (NEGATIVE); PROTEIN,URINE NEGATIVE (NEGATIVE); UROBILINOGEN,URINE NEGATIVE mg/dL (<2.0)
[2018-03-08] MEDS ORDERED: DIPHENHYDRAMINE HCL 50 MG/ML VIAL IV PRN (11:16)
[2018-03-08] MEDS ORDERED: MEPERIDINE HCL/PF INJ 25 MG/1 ML DISP.SYRIN IV PRN (11:16)
[2018-03-08] MEDS ORDERED: FENTANYL CITRATE INJ/PF 100 MCG/2 ML AMPUL IV PRN ×3 (11:16)
[2018-03-08] MEDS ORDERED: PROMETHAZINE HCL INJ 25 MG/1 ML VIAL IV PRN (11:16)
[2018-03-08] MEDS ORDERED: DIPHENHYDRAMINE HCL 50 MG/ML VIAL ONE (12:21)
[2018-03-08] MEDS ORDERED: PROMETHAZINE HCL INJ 25 MG/1 ML VIAL ONE (12:22)
[2018-03-08] MEDS ORDERED: HYDROMORPHONE HCL INJ/PF 2 MG/ML AMPULE ONE ×2 (12:22→12:41)
--- NOTE | 2018-03-08 13:24 | OPERATIVE REPORT E ---
Operative Report NAME: HEATHER KAISER : 1995 AGE: 22Y DATE OF SURGERY: 03/08/2018 ROOM: 533 PREOPERATIVE DIAGNOSIS: Abscess of the left forearm, post I and D in the ER. POSTOPERATIVE DIAGNOSIS: Abscess of the left forearm, post I and D in the ER. PROCEDURE: Further incision and drainage of abscess, left forearm. ANESTHESIA: General. SURGEON: JOSIANE ESCOBAR M.D. ESTIMATED BLOOD LOSS: About 20 mL. INDICATIONS: This is a 22-year-old female who had an abscess in the left forearm drained in the ER last night by Dr. Torres. Unfortunately, this morning, the arm is still markedly inflamed and in squeezing on the site, there is still some purulent material that extruded out. The patient is in a lot of pain. The patient was then taken to the OR for further incision and drainage and pulse lavage. DESCRIPTION OF PROCEDURE: After adequate general anesthesia, the patient was placed in a supine position. The left arm was extended and subsequently prepped and draped in the usual sterile fashion. The abscess cavity was then probed with a Hemostat and eventually by digital examination. The abscess cavity extended proximally to at least 1.5 cm and distally another 1.5 cm. Also, it extended medially to another 2 cm. and 2 cm just over the fascia underneath the skin and subcutaneous area.No other area of tunnelling noted. Next, the incision was extended proximally and distally to a total distance of 7 cm and medial side incised to a total distance of 5 cm from the lateral-most side of the previous incision. Next, cultures were obtained, although there was not as much purulent material squeezed out. The cavity was then pulse lavaged with about 3 L of saline. Hemostasis obtained through the subcutaneous with the use of cautery. Next, the cavity was then packed with Betadine-soaked gauze and wrapped over with a 4 x 4 and a Kerlix. The patient tolerated the procedure well and was brought to the recovery room in satisfactory condition. Needle, instrument, and sponge counts were all correct with estimated blood loss at 15 ccs. DICTATING PHYSICIAN: JOSIANE ESCOBAR M.D. [id number] PHY#: [id number] ID: [id number] JOB#: [id number] ACCT: [id number] cc:JOSIANE ESCOBAR M.D. > SHIRAZ
[2018-03-08] MEDS ORDERED: BUPRENORPHINE HCL 2 MG SUBLINGUAL TABLET SL ONE (17:45)
[2018-03-09] MEDS: HYDROMORPHONE HCL INJ/PF 2 MG/ML AMPULE IV PRN ×6 (02:42→22:08)
[2018-03-09] MEDS: BUPRENORPHINE HCL 2 MG SUBLINGUAL TABLET SL SCH (10:58)
[2018-03-09] MEDS: VANCOMYCIN HCL 1,250 MG in DEXTROSE 5%-WATER 250 ML IV SCH (11:39)
[2018-03-09 12:08] LABS: VANCOMYCIN,TROUGH 15.5 ug/mL (5.0-20.0)
[2018-03-09] MEDS ORDERED: BENZOIN/ALOE VERA/STORAX/TOLU TINCTURE 60 ML TP PRN (14:13)
[2018-03-09] MEDS ORDERED: ENOXAPARIN SODIUM INJ 30 MG/0.3 ML DISP.SYRIN SUBCUT ONE (18:00)
[2018-03-09] MEDS ORDERED: KETOROLAC TROMETHAMINE INJ/PF 30 MG/1 ML SDV ONE (19:53)
--- NOTE | 2018-03-09 20:18 | PDOC PROGRESS REPORT ---
Subjective Progress Note for:: 03/09/18 Subjective:: Still c/o pains left arm. Note that patient on Subaxone for a year now. So most likely has very low tolerance for pain. Try Toradol Reason For Visit: ABSCESS OF LEFT FOREARM Physical Exam Vital Signs: Temp Pulse Resp BP Pulse Ox 98.1 F 98 16 129/78 H 98 03/09/18 13:00 03/09/18 13:00 03/09/18 13:00 03/09/18 13:00 03/09/18 13:00 Intake & Output 03/08/18 03/09/18 03/10/18 06:59 06:59 06:59 Intake Total 32117 1753 Output Total 3000 Balance 7840 1753 Weight 50.5 kg 51 kg Exam: DPacking removed. The wound is clean and dry but roughly measured 7cm x5cm. A wound vac was applied. There is some edema around left forearm down to left hand. Still has difficulty straightening left arm completely. Results Laboratory Results: 03/08/18 06:55 03/08/18 06:55 Impressions: Chest X-Ray 03/07/18 18:08 IMPRESSION: NO ACUTE RADIOGRAPHIC FINDING IN THE CHEST. Assessment & Plan - Time Time Spent with patient: 15-24 minutes - Inpatient Certification Medical Necessity: Need for Pain Control, Need for IV Antibiotics - Plan Summary Plan Summary: Wound vac applied. Ask discharge planning to have wound vac at home then will discharge on po Clindamycin.
[2018-03-09] MEDS ORDERED: HYDROMORPHONE HCL INJ/PF 2 MG/ML AMPULE IV ONE (20:30)
[2018-03-09] MEDS ORDERED: CLINDAMYCIN 600 MG/D5W RTU 600 MG/50 ML RTUPB IV ONE (20:30)
[2018-03-10] MEDS: CLINDAMYCIN 600 MG/D5W RTU 600 MG/50 ML RTUPB IV SCH ×3 (05:56→22:08)
--- NOTE | 2018-03-10 09:03 | PDOC PROGRESS REPORT ---
Subjective Progress Note for:: 03/10/18 Reason For Visit: ABSCESS OF LEFT FOREARM Patient is one day status post VAC placement, 2 days status post I&D left forearm abscess, growing gram-positive cocci, significant pain with limited range of motion left arm Physical Exam Vital Signs: Temp Pulse Resp BP Pulse Ox 98.2 F 88 14 116/76 98 03/09/18 23:44 03/09/18 23:44 03/09/18 23:44 03/09/18 23:44 03/09/18 23:44 Intake & Output 03/09/18 03/10/18 03/11/18 06:59 06:59 06:59 Intake Total 84500 2593 Output Total 3000 Balance 7840 2593 Weight 51 kg 49.4 kg General appearance: PRESENT: mild distress Extremities exam: PRESENT: other - Developing flexion contracture, mild, left upper extremity Results Laboratory Results: 03/08/18 06:55 03/08/18 06:55 03/08/18 10:41 Clean Catch Midstream Urine Culture - Final NO GROWTH 2 DAYS Impressions: Chest X-Ray 03/07/18 18:08 IMPRESSION: NO ACUTE RADIOGRAPHIC FINDING IN THE CHEST. Assessment & Plan - Diagnosis (1) Abscess of forearm, left Is this a current diagnosis for this admission?: Yes Plan: Now 2 days status post operative debridement, wound VAC in place, growing gram- positive cocci on clindamycin Recommendations: 1. Continue wound VAC today. 2. We will obtain occupational therapy consultation for evaluation and treatment as well as home health services to coordinate home VAC 3. Colace 100 mg p.o. twice daily 4. Anticipate discharge home tomorrow; patient has a lot of psychosocial issues to work through
[2018-03-10] MEDS: HYDROMORPHONE HCL INJ/PF 2 MG/ML AMPULE IV PRN ×4 (09:11→23:51)
[2018-03-10] MEDS: ENOXAPARIN SODIUM INJ 30 MG/0.3 ML DISP.SYRIN SUBCUT SCH (09:11)
[2018-03-10] MEDS: BUPRENORPHINE HCL 2 MG SUBLINGUAL TABLET SL SCH (09:11)
[2018-03-10] MEDS ORDERED: DOCUSATE SODIUM 100 MG CAPSULE PO SCH (10:00)
[2018-03-10] MEDS: DOCUSATE SODIUM 100 MG CAPSULE PO SCH ×2 (11:11→17:51)
[2018-03-10] MEDS: KETOROLAC TROMETHAMINE INJ/PF 30 MG/1 ML SDV IV PRN (17:52)
[2018-03-11] MEDS: CLINDAMYCIN 600 MG/D5W RTU 600 MG/50 ML RTUPB IV SCH ×3 (05:59→21:22)
[2018-03-11] MEDS: HYDROMORPHONE HCL INJ/PF 2 MG/ML AMPULE IV PRN ×5 (06:24→21:14)
[2018-03-11 08:49] LABS: ABSOLUTE BASOPHILS # (AUTO) 0.1 10^3/uL (0.0-0.2); ABSOLUTE EOSINOPHILS # (AUTO) 0.1 10^3/uL (0.0-0.6); ABSOLUTE LYMPHOCYTES (AUTO) 1.4 10^3/uL (0.5-4.7); ABSOLUTE MONOCYTES (AUTO) 0.9 10^3/uL (0.1-1.4); ABSOLUTE NEUT (AUTO) 6.6 10^3/uL (1.7-8.2); BASOPHILS % (AUTO) 0.9 % (0-2); EOSINOPHILS % (AUTO) 1.3 % (0-6); HEMATOCRIT 29.4 % (36.0-47.0); HEMOGLOBIN 10.3 g/dL (12.0-15.5); LYMPHOCYTES % (AUTO) 14.9 % (13-45); MEAN CORPUSCULAR HEMOGLOBIN 29.1 pg (27.0-33.4); MEAN CORPUSCULAR HGB CONC 35.1 g/dL (32.0-36.0); MEAN CORPUSCULAR VOLUME 83 fl (80-97); MONOCYTES % (AUTO) 10.1 % (3-13); PLATELET COUNT 439 10^3/uL (150-450); RED BLOOD COUNT 3.55 10^6/uL (3.72-5.28); RED CELL DISTRIBUTION WIDTH 13.5 % (11.5-14.0); SEGMENTED NEUTROPHILS % (AUTO) 72.8 % (42-78); TOTAL CELLS COUNTED % (AUTO) 100 %; WHITE BLOOD COUNT 9.1 10^3/uL (4.0-10.5)
[2018-03-11] MEDS: DOCUSATE SODIUM 100 MG CAPSULE PO SCH ×2 (09:32→18:38)
[2018-03-11] MEDS: BUPRENORPHINE HCL 2 MG SUBLINGUAL TABLET SL SCH (09:32)
[2018-03-11] MEDS: ENOXAPARIN SODIUM INJ 30 MG/0.3 ML DISP.SYRIN SUBCUT SCH (09:32)
[2018-03-11] MEDS ORDERED: DIPHENHYDRAMINE HCL 50 MG/ML VIAL IV ONE (14:30)
--- NOTE | 2018-03-11 19:38 | PDOC PROGRESS REPORT ---
Subjective Progress Note for:: 03/11/18 Reason For Visit: ABSCESS OF LEFT FOREARM Physical Exam Vital Signs: Temp Pulse Resp BP Pulse Ox 99.0 F 93 12 130/77 H 100 03/11/18 16:57 03/11/18 16:57 03/11/18 16:57 03/11/18 16:57 03/11/18 16:57 Intake & Output 03/10/18 03/11/18 03/12/18 06:59 06:59 06:59 Intake Total 2593 1034 350 Output Total 210 Balance 2593 824 350 Weight 49.4 kg Results Laboratory Results: 03/11/18 08:33 03/08/18 06:55 03/11/18 08:33 WBC 9.1 RBC 3.55 L Hgb 10.3 L Hct 29.4 L MCV 83 MCH 29.1 MCHC 35.1 RDW 13.5 Plt Count 439 Seg Neutrophils % 72.8 Lymphocytes % 14.9 Monocytes % 10.1 Eosinophils % 1.3 Basophils % 0.9 Absolute Neutrophils 6.6 Absolute Lymphocytes 1.4 Absolute Monocytes 0.9 Absolute Eosinophils 0.1 Absolute Basophils 0.1 03/07/18 19:55 Forearm - Left Side Abscess Gram Stain - Final 03/07/18 19:55 Forearm - Left Side Abscess Wound Culture - Final Streptococcus Mitis No Anaerobic Organisms Impressions: Chest X-Ray 03/07/18 18:08 IMPRESSION: NO ACUTE RADIOGRAPHIC FINDING IN THE CHEST. Assessment & Plan - Diagnosis (1) Abscess of forearm, left Is this a current diagnosis for this admission?: Yes - Plan Summary Plan Summary: This is a 22-year-old female status post incision and drainage of a left upper extremity abscess. Currently, she has a wound VAC in place. I have recommended replacement of the wound VAC today at the bedside. Patient currently has company and would like to wait until later. I will return later to replace her wound VAC. Home wound VAC is pending. Discharge home when wound VAC is approved.
[2018-03-11] MEDS ORDERED: DIPHENHYDRAMINE HCL 50 MG/ML VIAL INJ ONE (22:30)
--- NOTE | 2018-03-11 22:48 | Operative Report ---
Nonrecallable Operative Report DATE OF SURGERY: 03/11/18 PREOPERATIVE DIAGNOSIS: Large wound to the left forearm POSTOPERATIVE DIAGNOSIS: Same as above OPERATION: 1. Removal of previous wound VAC to the left upper extremity. 2. Placement of wound VAC (negative pressure wound management system) to the left upper extremity wound. Wound measures approximately 30 cm. SURGEON: ABIEL MUSE ANESTHESIA: Other - None TISSUE REMOVED OR ALTERED: None COMPLICATIONS: None apparent ESTIMATED BLOOD LOSS: Minimal PROCEDURE: Drains/implants: KCI wound VAC. The patient was laid in the supine position in the hospital room. The previous KCI wound VAC dressing was carefully removed from the patient. The wound measured approximately 7 cm in total length and approximately 5 cm in total width. The depth was approximately 1-2 cm. There was healthy muscle in the base of the wound. There was no purulent material present. The wound was irrigated and a new negative pressure wound management system was applied in standard fashion. Suction was applied to the dressing, and no leak was identified. At this time the procedure was concluded. Condition: Stable.
[2018-03-12] MEDS: KETOROLAC TROMETHAMINE INJ/PF 30 MG/1 ML SDV IV PRN ×2 (05:43→16:51)
[2018-03-12] MEDS: CLINDAMYCIN 600 MG/D5W RTU 600 MG/50 ML RTUPB IV SCH (05:43)
--- NOTE | 2018-03-12 09:50 | PDOC PROGRESS REPORT ---
Subjective Progress Note for:: 03/12/18 Subjective:: Feels well. No complaints. Reason For Visit: ABSCESS OF LEFT FOREARM Physical Exam Vital Signs: Temp Pulse Resp BP Pulse Ox 98.0 F 78 12 126/63 H 100 03/12/18 07:47 03/12/18 07:47 03/12/18 07:47 03/12/18 07:47 03/12/18 07:47 Intake & Output 03/11/18 03/12/18 03/13/18 06:59 06:59 06:59 Intake Total 1034 788 Output Total 210 Balance 824 788 Weight 49.4 kg General appearance: PRESENT: no acute distress, cooperative Respiratory exam: PRESENT: clear to auscultation sindhu Cardiovascular exam: PRESENT: RRR Extremities exam: PRESENT: other - Forearm with a minimal surrounding erythema with wound VAC in place. Results Laboratory Results: 03/11/18 08:33 03/08/18 06:55 03/07/18 19:55 Forearm - Left Side Abscess Gram Stain - Final 03/07/18 19:55 Forearm - Left Side Abscess Wound Culture - Final Streptococcus Mitis No Anaerobic Organisms Impressions: Chest X-Ray 03/07/18 18:08 IMPRESSION: NO ACUTE RADIOGRAPHIC FINDING IN THE CHEST. Assessment & Plan - Diagnosis (1) Abscess of forearm, left Is this a current diagnosis for this admission?: Yes Plan: Cultures grew out pansensitive strep. Patient responding well with debridement and wound VAC and antibiotic. Will discharge patient home with p.o. Keflex for another week and with wound VAC when home health has been arranged. Will have patient follow-up at the wound care clinic.
[2018-03-12] MEDS: HYDROMORPHONE HCL INJ/PF 2 MG/ML AMPULE IV PRN ×2 (10:37→14:12)
[2018-03-12] MEDS: BUPRENORPHINE HCL 2 MG SUBLINGUAL TABLET SL SCH (10:38)
[2018-03-12] MEDS: DOCUSATE SODIUM 100 MG CAPSULE PO SCH ×2 (10:40→17:55)
[2018-03-12] MEDS: ENOXAPARIN SODIUM INJ 30 MG/0.3 ML DISP.SYRIN SUBCUT SCH (10:46)
--- NOTE | 2018-03-12 13:44 | DISCHARGE SUMMARY E ---
Discharge Summary NAME: HEATHER KAISER : 1995 AGE: 22Y ADMITTED: 03/07/2018 DISCHARGED: 03/12/2018 DISCHARGE DIAGNOSIS: Left upper extremity abscess. PROCEDURES PERFORMED DURING HOSPITALIZATION: 1. Left upper extremity abscess incision and drainage performed by Dr. Torres on 03/07/2018. 2. Left upper extremity abscess incision and drainage performed by Dr. Gonzalez on 03/08/2018. HOSPITAL COURSE: Patient underwent the above-mentioned procedures. She did well postoperatively. Her white count returned to normal and the wound appeared good at the time of discharge on a wound VAC regimen. Her cultures grew out Streptococcus mitis which was pansensitive. Her antibiotics were switched over to Keflex at the time of discharge. The patient is now being discharged to home in good condition. She will follow up at the [facility] next week. A wound VAC was arranged for the patient for home. It is to be changed every 3 days. DISCHARGE MEDICATIONS: Keflex 500 mg 1 p.o. t.i.d. for 7 days. She may resume her home medications. DISCHARGE INSTRUCTIONS: She may follow a regular diet. She is encouraged to stay active at home. She will be followed up at the Wound Care Clinic next week. DICTATING PHYSICIAN: MATA MCQUEEN M.D. [id number] Y#: [id number] ID: [id number] JOB#: [id number] ACCT: [id number] cc:MATA MCQUEEN M.D. [facility],
[2018-03-12] MEDS ORDERED: CEPHALEXIN 500 MG CAPSULE PO SCH (14:00)
[2018-03-12 16:36] VITALS: BP 127/74
== END 2018-03-12 17:15 | disposition home health service (06) | DRG 581 ==
LOC: ER 17:39 → EH 19:45 → OBSVTOIN 19:45 → 5 22:00
PROVIDERS: ATTEND Surgery
PROC: 0K9B0ZX Drainage of Left Lower Arm and Wrist Muscle, Open Approach, Diagnostic (ICD-10-PCS; principal; 2018-03-07)
PROC: 0JDH0ZZ Extraction of Left Lower Arm Subcutaneous Tissue and Fascia, Open Approach (ICD-10-PCS; 2018-03-08)
PROC: F08 Physical Rehabilitation and Diagnostic Audiology, Rehabilitation, Activities of Daily Living Treatment (ICD-10-PCS; 2018-03-11)
DX: L02.414 Cutaneous abscess of left upper limb (principal); R00.0 Tachycardia, unspecified; F17.200 Nicotine dependence, unspecified, uncomplicated; E03.9 Hypothyroidism, unspecified; F32.9 Major depressive disorder, single episode, unspecified; Z86.59 Personal history of other mental and behavioral disorders; Z98.891 History of uterine scar from previous surgery; B95.4 Other streptococcus as the cause of diseases classified elsewhere
CPT/HCPCS: 00400; 36415; 71045; 80048; 80053; 80202; 81001; 83605; 84703; 85025; 85610; 87040; 87070; 87075; 87077; 87086; 87186; 87205; 93005; 93010; 96361; 96365; 99285; J0330; J0571; J0696; J1170; J1200; J1650; J1885; J2250; J2405; J2550; J2704; J3010; J3370; J3490; J7030; J7060

== ENCOUNTER 2018-05-23 12:39 | Emergency (ER) | payer MEDICAID ==
[2018-05-23 12:47] VITALS: BP 140/86
--- NOTE | 2018-05-23 12:51 | ER Document Report ---
HPI - HPI Patient complains to provider of: Abscess right volar forearm Pain Level: 3 Context: 22-year-old ex-IV drug user is an abscess right volar forearm for 3 days. She had a abscess that was incised in early March and the culture grew out strep mitis which was sensitive to clindamycin. This time she takes buprenorphine/ naloxone daily. Associated Symptoms: None Exacerbated by: Movement Relieved by: Denies Similar symptoms previously: Yes Recently seen / treated by doctor: No - ROS ROS below otherwise negative: Yes Systems Reviewed and Negative: Yes All other systems reviewed and negative - REPRODUCTIVE Reproductive: DENIES: : Past Medical History - General Information source: Patient - Social History Smoking Status: Unknown if Ever Smoked Frequency of alcohol use: None Drug Abuse: None Lives with: Family Family History: Reviewed & Not Pertinent Endocrine Medical History: Reports: Hx Hypothyroidism. Denies: Hx Hyperthyroidism Psychiatric Medical History: Reports: Hx Depression Past Surgical History: Reports: Hx Section - Immunizations Hx Diphtheria, Pertussis, Tetanus Vaccination: Yes Vertical Provider Document - CONSTITUTIONAL Agree With Documented VS: Yes Exam Limitations: No Limitations - INFECTION CONTROL TRAVEL OUTSIDE OF THE [place] IN LAST 30 DAYS: No - MUSCULOSKELETAL/EXTREMETIES Musculoskeletal/Extremeties: MAEW, FROM, Tender, Edema Notes: 1 cm fluctuant middle to induration measuring non-circumferentially 6 x 10 cm from the abscess center. Patient states some has drained out already - NEURO Level of Consciousness: Awake, Alert Course - Vital Signs Vital signs: Temp Pulse Resp BP Pulse Ox 98.4 F 84 16 140/86 H 100 05/23/18 12:43 05/23/18 12:43 05/23/18 12:43 05/23/18 12:43 05/23/18 12:43 Procedures - Incision and Drainage Right Arm Time completed: 13:25 Type: Simple Anesthetic type: 1% Lidocaine mL's of anesthetic: 3 Blade size: 11 I&D procedure: Betadine prep applied, Sterile dressing applied, Other - Corner of 4 x 4 packed into the wound Incision Method: Incision made by scalpel Amount/type of drainage: Large pus Discharge - Discharge Clinical Impression: Abscess incision and drainage rt FA Condition: Good Disposition: HOME, SELF-CARE Instructions: Abscess ([facility]), Acetaminophen, Clindamycin ([facility]), Elevation & Warmth ([facility]), Ibuprofen (General) ([facility]), Post Incision and Drainage Additional Instructions: Recheck wound in 48 hours, sooner if worse Clindamycin antibiotic as prescribed Motrin and Tylenol for pain Elevate her arm above your heart Warm compress Prescriptions: Ibuprofen [Motrin 600 mg Tablet] 600 mg PO Q8HP PRN #30 tablet PRN Reason: Clindamycin HCl [Cleocin 150 mg Capsule] 300 mg PO QID #56 capsule Referrals: NATANAEL SANFORD MD [Primary Care Provider] - Follow up as needed
[2018-05-23] MEDS ORDERED: LIDOCAINE 4%/TETRACAINE 0.5%/EPI 0.18% 5 ML TOPICAL SOLN TOP ONE (12:56)
[2018-05-23] MEDS ORDERED: SULFAMETHOXAZOLE/TRIMETHOPRIM 800-160 MG TABLET PO ONE (12:57)
[2018-05-23] MEDS ORDERED: ONDANSETRON 4 MG TAB.RAPDIS PO ONE (12:57)
[2018-05-23] MEDS ORDERED: ACETAMINOPHEN 325 MG TABLET PO ONE (12:57)
[2018-05-23] MEDS ORDERED: IBUPROFEN 600 MG TABLET PO ONE (12:57)
[2018-05-23] MEDS ORDERED: CLINDAMYCIN HCL 150 MG CAPSULE PO ONE (12:58)
== END 2018-05-23 13:41 | disposition home or self-care (01) ==
LOC: ER 12:39
DX: L02.413 Cutaneous abscess of right upper limb (principal); F19.11 Other psychoactive substance abuse, in remission; Z79.899 Other long term (current) drug therapy
CPT/HCPCS: 99283; 10060; J3490 ×4; S0119

== ENCOUNTER 2018-05-26 17:08 | Emergency (ER) | payer MEDICAID | END 2018-05-26 17:20 | disposition left against medical advice (07) | LOC: ER 17:08 | DX: Z53.21 Procedure and treatment not carried out due to patient leaving prior to being seen by health care provider (principal) ==

== ENCOUNTER → 2020-05-27 | Outpatient (CLI) | payer MEDICAID ==
--- NOTE | 2020-05-27 15:21 | RADIOLOGY REPORT (SQ) ---
EXAM DESCRIPTION: FOOT RIGHT COMPLETE IMAGES COMPLETED DATE/TIME: 05/27/2020 3:09 pm REASON FOR STUDY: LOCAL INFECTION OF THE SKIN AND SUBCUTANEOUS TISSUE, UNSP L08.9 LOCAL INFECTION O F THE SKIN AND SUBCUTANEOUS TISSUE, U COMPARISON: None. NUMBER OF VIEWS: Three views. TECHNIQUE: AP, lateral and oblique without weight bearing radiographic images acquired of the right foot. LIMITATIONS: None. FINDINGS: MINERALIZATION: Normal. BONES: No acute fracture or dislocation. Incidental ossicle adjacent to the lateral malleolus. No w orrisome bone lesions. No significant osteophytes. JOINTS: No erosions. No maite-articular osteopenia. No chondrocalcinosis. SOFT TISSUES: No swelling. No calcifications. OTHER: No other significant finding. IMPRESSION: NEGATIVE STUDY OF THE RIGHT FOOT. TECHNICAL DOCUMENTATION: JOB ID: [id number] 2010 [employer]- All Rights Reserved Reading location - IP/workstation name: [email or web address]
== END ==
LOC: OD 14:37
PROVIDERS: ATTEND Nurse Practitioner Family
DX: L08.9 Local infection of the skin and subcutaneous tissue, unspecified (principal)

== ENCOUNTER → 2020-10-24 | Outpatient (CLI) | payer MEDICAID ==
[2020-10-24 17:49] LABS: THYROID STIMULATING HORMONE 3.97 uIU/mL (0.47-4.68)
[2020-10-24 18:15] LABS: FREE T4 (FREE THYROXINE) 0.88 ng/dL (0.78-2.19)
== END ==
LOC: OD 14:13
PROVIDERS: ATTEND Psychiatry & Neurology Psychiatry
DX: F41.9 Anxiety disorder, unspecified (principal)
CPT/HCPCS: 36415; 84439; 84443